=== PATIENT | female | born 1965 | race Caucasian/White ===

== ENCOUNTER 2018-10-15 18:21 | Emergency (ER) | payer MEDICAID ==
[~2018-10-15] VITALS: Ht 154.9 cm; Wt 96.2 kg
--- NOTE | 2018-10-15 19:01 | NUR ---
pt stated that she fell in her driveway and landed on her right arm. Pt complains of right shoulder pain. +CMS.
[2018-10-15] MEDS ORDERED: METHOCARBAMOL 750 MG TABLET ONE (19:35)
[2018-10-15] MEDS ORDERED: METHOCARBAMOL 750 MG TABLET PO ONE (20:00)
[2018-10-15 20:39] VITALS: BP 122/78
--- NOTE | 2018-10-15 20:39 | NUR ---
Patient/Caregiver given discharge instructions and they have confirmed that they understand the instructions. Patient ambulatory with steady gait.
== END 2018-10-15 20:46 | disposition home or self-care (01) ==
LOC: ED 19:35
DX: G89.11 Acute pain due to trauma (principal); M25.511 Pain in right shoulder; F41.1 Generalized anxiety disorder; F32.9 Major depressive disorder, single episode, unspecified; W01.0XXA Fall on same level from slipping, tripping and stumbling without subsequent striking against object, initial encounter; Y93.89 Activity, other specified; Y92.009 Unspecified place in unspecified non-institutional (private) residence as the place of occurrence of the external cause; Y99.8 Other external cause status
CPT/HCPCS: 99283